=== PATIENT | male | born 1980 ===

== ENCOUNTER 2020-05-12 12:32 | Day surgery (SDC) | payer OTHER ==
[~2020-05-12 12:32] MED LIST: TENORMIN50 M1 PO
[2020-05-12] MEDS ORDERED: ACETAMINOPHEN-1 EAC2 PO (14:42)
== END 2020-05-12 19:45 | disposition home or self-care (01) ==
LOC: CIR.AMB 12:32
PROVIDERS: ATTEND Surgery
DX: N47.1 Phimosis (principal); Z20.822 Contact with and (suspected) exposure to COVID-19